=== PATIENT | female | born 2000 | race African-American/Black ===

== ENCOUNTER 2022-12-08 09:06 | Emergency (ER) | payer SELFPAY ==
[~2022-12-08] VITALS: Ht 165.1 cm; Wt 124.7 kg
[2022-12-08] MEDS ORDERED: CEPHALEXIN500 MG PO (09:27)
== END 2022-12-08 09:59 | disposition home or self-care (01) ==
LOC: FSED 09:24
DX: L03.211 Cellulitis of face (principal); W01.0XXA Fall on same level from slipping, tripping and stumbling without subsequent striking against object, initial encounter; Y92.89 Other specified places as the place of occurrence of the external cause
CPT/HCPCS: 99282